=== PATIENT | female | born 1990 | race Caucasian/White ===

== ENCOUNTER 2016-11-29 06:48 | Emergency (ER) | payer OTHER | END 2016-11-29 09:20 | disposition home or self-care (01) | LOC: ER1 06:48 | DX: S39.012A Strain of muscle, fascia and tendon of lower back, initial encounter (principal); X50.0XXA Overexertion from strenuous movement or load, initial encounter; Y92.69 Other specified industrial and construction area as the place of occurrence of the external cause; Y99.0 Civilian activity done for income or pay | CPT/HCPCS: 72131; 81001; 84703; 96372; 99283; J1100 ==